=== PATIENT | male | born 1950 | race Caucasian/White ===

== ENCOUNTER → 2019-07-22 | Outpatient (CLI) | payer SELFPAY | PROVIDERS: Family Provider Nurse Practitioner; Visit Provider Nurse Practitioner | DX: N40.0 Benign prostatic hyperplasia without lower urinary tract symptoms (principal); K44.9 Diaphragmatic hernia without obstruction or gangrene; I70.0 Atherosclerosis of aorta | CPT/HCPCS: 74178; 82565; 84520; Q9967 ×2 ==

== ENCOUNTER 2019-07-25 08:00 | Outpatient (CLI) | payer MEDICARE, BC, SELFPAY | END 2019-07-25 09:00 | disposition home or self-care (01) | LOC: RAD 03-09 11:52 | PROVIDERS: PCP Nurse Practitioner; Referring Provider Nurse Practitioner; Visit Provider Urology | DX: Z87.442 Personal history of urinary calculi (principal) | CPT/HCPCS: 36415; 81001 ==

== ENCOUNTER 2019-09-16 14:51 | Outpatient (CLI) | payer MEDICARE, BC, SELFPAY ==
--- NOTE | 2019-09-16 15:00 | US_ITS ---
WS: [id number] SCROTAL ULTRASOUND EXAMINATION CLINICAL INFORMATION: mass COMPARISON: None. FINDINGS: TESTES Normal in size and echotexture, without focal lesion. Color Doppler: Normal color Doppler flow pattern. Right testes size: 4.3 cm x 3.5 cm x 2.7 cm. Left testes size: 4.3 cm x 3.2 cm x 1.5 cm. EPIDIDYMIDES Lobulated large epididymal cyst or spermatocele measuring 4.1 x 2.1 x 1.8 cm. No internal vascularity . Color Doppler: Normal color Doppler flow pattern. Right epididymis size: 1.0 cm Left epididymitis size: 1.3 cm HYDROCELE None. VARICOCELE None. OTHER FINDINGS None. US/US scrotum [id number] IMPRESSION: 1. Both testicles are normal in size and echotexture. Normal vascularity. 2. Large lobulated epididymal cystic lesion measuring 4.1 x 2.1 x 1.8 cm most consistent with epididymal cyst or spermatocele. Recommend Urology consultation .
== END 2019-09-16 14:52 | disposition home or self-care (01) ==
LOC: US 14:55
PROVIDERS: Family Provider Nurse Practitioner; PCP Nurse Practitioner; Visit Provider Nurse Practitioner
DX: N50.3 Cyst of epididymis (principal); N50.9 Disorder of male genital organs, unspecified
CPT/HCPCS: 76870

== ENCOUNTER → 2019-10-21 13:57 | Outpatient (BNVA) | payer MEDICARE, BC, SELFPAY | PROVIDERS: Family Provider Nurse Practitioner; PCP Nurse Practitioner; Visit Provider Urology | DX: R31.0 Gross hematuria (principal); N43.42 Spermatocele of epididymis, multiple | CPT/HCPCS: 81001 ==

== ENCOUNTER 2020-01-26 18:22 | Emergency (ER) | payer MEDICARE, BC, SELFPAY ==
[2020-01-26 18:25] VITALS: BP 150/96; PULSE 76; RESP 18; TEMP 36.7; O2SAT 93; BMI 26.4
--- NOTE | 2020-01-26 18:25 | ECG_ITS ---
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 Measurements Intervals [place] Rate: 70 P: 60 PA: 160 QRS: -3 QRSD: 108 T: 42 QT: 379 QTc: 409 Interpretive Statements SINUS RHYTHM INCOMPLETE RIGHT BUNDLE BRANCH BLOCK [90+ ms QRS DURATION, TERMINAL R IN V1/V2, 40+ ms S IN I/aVL/V4/V5/V6] No previous ECG available for comparison Electronically Signed On 01-26-2020 21:44:09 CDT by Iqra Baker M.D. [email or web address].[facility].[employer]/store/NU/[id number] f
--- NOTE | 2020-01-26 18:25 | XRR_ITS ---
PROCEDURE INFORMATION: Exam: XR Chest, 1 View Exam date and time: 01/26/2020 6:46 PM Age: 69 years old Clinical indication: Right-sided chest pain; Patient HX: C/O R sided cp worsened w inspiration TECHNIQUE: Imaging protocol: XR of the chest Views: 1 view. COMPARISON: No relevant prior studies available. FINDINGS: Lungs: Emphysema. Mild atelectasis in the left base. The right lung is clear. Pleural space: Unremarkable. No pleural effusion. No pneumothorax. Heart/Mediastinum: Unremarkable. No cardiomegaly. Bones/joints: Unremarkable. XR/XR chest 1V portable [id number] IMPRESSION: No acute findings. With
[2020-01-26 18:47] LABS: Basophils # 0.1 10^3/uL (0.0-0.1); Basophils % 0.9 %; Eosinophils # 0.2 10^3/uL (0.0-0.8); Eosinophils % 2.8 %; Hematocrit 44.9 % (42.0-52.0); Hemoglobin 14.6 g/dL (11.7-16.6); Lymphocytes % 17.7 %; Mean Corpuscular HGB Conc 32.5 g/dL (30.0-36.0); Mean Corpuscular Hemoglobin 29.9 pg (28.0-34.0); Mean Platelet Volume 10.3 fL (7.4-10.4); Monocytes # 0.5 10^3/uL (0.2-0.9); Monocytes % 8.7 %; Neutrophils % 69.7 %; Nucleated Red Blood Cells % 0 %; Platelet Count 242 10^3/cmm (130-400); Red Blood Count 4.88 10^6/uL (4.1-5.3); Red Cell Distribution Width 12.5 % (12.1-15.1); White Blood Count 5.8 10^3/uL (4.0-10.0)
--- NOTE | 2020-01-26 18:54 | ED_ITS ---
HPI - Chest Pain General: Chief Complaint: Chest Pain Stated Complaint: cp Time Seen by Provider: 01/26/20 18:35 Source: patient Mode of arrival: ambulatory Limitations: no limitations History of Present Illness: HPI narrative: 69-year-old female who states he was doing a step class just prior to arrival. He states that while he was doing a step class he started having chest pain is a pressure type pain along with nausea. He states that his pain is a pressure pain and at its worst is an 8 out of 10. He states he came straight here and his pain is improved and is now 1 ou t of 10. He has no history of heart disease. He was a former smoker. MD complaint: chest pain Onset (ago): hour(s) Onset: during exertion Pain location: substernal Pain radiation: none Severity: mild Quality: tightness Relieving factors: nothing and rest Exacerbating factors: nothing and exertion Associated symptoms: Deny abdominal pain, dyspnea, fever(s), nausea or vomiting Review of Systems Const: Denies: fever(s), chills, body aches or change in appetite Eyes: Denies: blurry vision or eye discomfort ENMT: Denies: throat pain or dental pain Card: Reports: chest pain Resp: Denies: dyspnea GI: Denies: abdominal pain, nausea, vomiting or diarrhea : Denies: dysuria Musc: Denies: neck pain or back pain Skin/Breast: Denies: rash Neuro: Denies: headache(s) Psych: Denies: depression Aston/Lymph: Denies: easy bruising All/Imm: Denies: urticaria PFSH ED PFSH: Medical History Gross hematuria with kidney stone passage H/O renal calculi Spermatocele of epididymis, multiple Surgical History S/P appendectomy S/P hernia repair S/P orchiopexy Family History Mother , 84 Cancer Father , at age 85 Pneumonia Social History Smoking and tobacco status: never smoked Alcohol intake: never Marital status: Single Current occupational status: retired History of recent travel: No Physical Exam Const: COMMON NORMALS: no acute distress, patient oriented x3 and healthy appearing HENMT: COMMON NORMALS: normocephalic and atraumatic HEAD & SCALP: normocephalic and atraumatic Eye: COMMON NORMALS: Equal, round and reactive pupils present and EOMs intact bilaterally PUPIL: Yes Equal, round and reactive pupils present Neck/C-Spine: COMMON NORMALS: full ROM and supple Chest: COMMONS NORMALS: normal inspection of the chest and normal palpation of entire chest wall Resp: COMMON NORMALS: normal respiratory effort, No retractions, No use of accessory muscles and clear to auscultation bilaterally AUSCULTATION: clear to auscultation bilaterally Cardio: COMMON NORMALS: regular rate, regular rhythm and No murmurs present (Cardio) RATE: regular rate RHYTHM: regular rhythm GI: COMMON NORMALS: Normal to inspection, nondistended, normoactive bowel sounds present, Soft to palpation, non-tender and no masses PALPATION: Yes Soft to palpation Extremity: COMMON NORMALS: normal to inspection and full ROM Neuro: COMMON NORMALS: patient oriented x3, moves all extremities and no focal motor deficits Psych: COMMON NORMALS: mental status grossly normal, Normal thought process present and cooperative THOUGHT PROCESS: Normal thought process present Skin: COMMON NORMALS: no rashes or lesions noted and no wounds GENERAL SKIN EXAM: no rashes or lesions noted Course Vital Signs: Vital signs: Vital Signs Temperature 98.1 F 01/26/20 18:25 Pulse Rate 71 01/26/20 19:30 Respiratory Rate 20 H 01/26/20 19:30 Blood Pressure 151/108 01/26/20 19:30 Pulse Oximetry 96 01/26/20 19:30 MDM - Chest Pain MDM Narrative: Medical decision making narrative: Patient presents with chest pain this since resolved. Patient's initial and repeat troponins are normal. Patient's EKGs are normal as well. I did offer patient admission as his pain was exertional. He states he feels that he does not need to be admitted at this time. He states he will follow-up with his PCP and I will get him follow-up with a school health assistant as well. I informed if he has any more pain he is to return immediately. Patient understands and agrees to plan. Lab Data: Labs: Lab Results 01/26/20 01/26/20 01/26/20 Range/Units 18:43 18:43 18:43 WBC 5.8 (4.0-10.0) 10^3/ uL RBC 4.88 (4.1-5.3) 10^6/u L Hgb 14.6 (11.7-16.6) g/dL Hct 44.9 (42.0-52.0) % MCV 92.0 (80-94) fL MCH 29.9 (28.0-34.0) pg MCHC 32.5 (30.0-36.0) g/dL RDW 12.5 (12.1-15.1) % Plt Count 242 (130-400) 10^3/c mm MPV 10.3 (7.4-10.4) fL Neut % (Auto) 69.7 % Lymph % (Auto) 17.7 % [place] % (Auto) 8.7 % Eos % (Auto) 2.8 % Baso % (Auto) 0.9 % Neut # (Auto) 4.0 (1.8-7.7) 10^3/u L Lymph # (Auto) 1.0 (0.8-4.8) 10^3/u L [place] # (Auto) 0.5 (0.2-0.9) 10^3/u L Eos # (Auto) 0.2 (0.0-0.8) 10^3/u L Baso # (Auto) 0.1 (0.0-0.1) 10^3/u L Nucleated RBC % (a uto) 0 % Nucleated RBCs # 0.0 /100WBC Sodium 140 (136-145) mmol/L Potassium 4.3 (3.5-5.1) mmol/L Chloride 104 (98-107) mmol/L Carbon Dioxide 26 (22-29) mmol/L Anion Gap 14.3 (5-19) BUN 16 (8-23) mg/dL Creatinine 0.9 (0.7-1.2) mg/dL Glucose 104 (65-115) mg/dL Calculated Osmolal ity 287 (285-295) mOsm/k g Calcium 9.5 (8.5-10.5) mg/dL Total Bilirubin 0.3 (0.15-1.2) mg/dL AST 25 (0-40) U/L ALT 17 (0-41) U/L Alkaline Phosphata se 70 (40-130) IU/L Troponin T Baselin e 15 (0-15) ng/L Troponin T 120 Min deering (0-15) ng/L Total Protein 6.7 (6.6-8.7) g/dL Albumin 4.6 (3.5-5.2) g/dL Globulin 2.1 (1.3-4.6) g/dL 01/26/20 Range/Units 20:10 WBC (4.0-10.0) 10^3/ uL RBC (4.1-5.3) 10^6/u L Hgb (11.7-16.6) g/dL Hct (42.0-52.0) % MCV (80-94) fL MCH (28.0-34.0) pg MCHC (30.0-36.0) g/dL RDW (12.1-15.1) % Plt Count (130-400) 10^3/c mm MPV (7.4-10.4) fL Neut % (Auto) % Lymph % (Auto) % [place] % (Auto) % Eos % (Auto) % Baso % (Auto) % Neut # (Auto) (1.8-7.7) 10^3/u L Lymph # (Auto) (0.8-4.8) 10^3/u L [place] # (Auto) (0.2-0.9) 10^3/u L Eos # (Auto) (0.0-0.8) 10^3/u L Baso # (Auto) (0.0-0.1) 10^3/u L Nucleated RBC % (a uto) % Nucleated RBCs # /100WBC Sodium (136-145) mmol/L Potassium (3.5-5.1) mmol/L Chloride (98-107) mmol/L Carbon Dioxide (22-29) mmol/L Anion Gap (5-19) BUN (8-23) mg/dL Creatinine (0.7-1.2) mg/dL Glucose (65-115) mg/dL Calculated Osmolal ity (285-295) mOsm/k g Calcium (8.5-10.5) mg/dL Total Bilirubin (0.15-1.2) mg/dL AST (0-40) U/L ALT (0-41) U/L Alkaline Phosphata se (40-130) IU/L Troponin T Baselin e (0-15) ng/L Troponin T 120 Min deering 15.92 H (0-15) ng/L Total Protein (6.6-8.7) g/dL Albumin (3.5-5.2) g/dL Globulin (1.3-4.6) g/dL Imaging Data^: CXR: Attestation: I personally reviewed and interpreted this imaging study as fo llows: My impression: no acute abnormality EKG Data^: EKG 1: Attestation: I personally reviewed and interpreted this EKG as follows: EKG interpretation date: 01/26/20 EKG interpretation time: 18:46 Interpretation: nsr hr [address] or t wave abnormalities qrs 108 qtc 399 EKG 2: Attestation: I personally reviewed and interpreted this EKG as follows: EKG interpretation date: 01/26/20 EKG interpretation time: 20:42 Interpretation: nsr hr [address] or t wave abnormalities qrs 109 qtc 410 Discharge Plan Discharge Patient Disposition: Home, Self-Care Clinical Impression: Chest pain Qualifiers: Chest pain type: other chest pain Qualified Code(s): R07.89 - Other chest pain Condition: Stable Prescriptions: No Action maitake liquid See Rx Instructions .ROUTE .COMPLEX RF: 0 chaga mushroom tablet 1 tab PO DAILY RF: 0 echinacea 1 tab PO DAILY RF: 0 c60 See Rx Instructions .ROUTE .COMPLEX RF: 0 oleuropsin See Rx Instructions .ROUTE .COMPLEX RF: 0 olive leaf extract See Rx Instructions .ROUTE .COMPLEX RF: 0 resveratrol-quercetin 100-100 mg tablet 1 tab PO DAILY RF: 0 ascorbate calcium (vitamin C) 500 mg tablet 500 mg PO DAILY RF: 0 liposamal 1 tab PO DAILY RF: 0 turmeric root extract 500 mg capsule 500 mg PO DAILY RF: 0 oregano oil 1,500 mg capsule 1,500 mg PO DAILY RF: 0 zinc 50 mg tablet 50 mg PO DAILY RF: 0 l-carnosine 500 mg PO DAILY RF: 0 nac 1,200 mg 1,200 mg PO DAILY RF: 0 vitamin B complex Capsule 1 cap PO DAILY RF: 0 vitamin k 2 1 tab PO DAILY RF: 0 nattokinase See Rx Instructions .ROUTE .COMPLEX RF: 0 boron 3 mg 3 mg PO DAILY RF: 0 lysine 1,000 mg tablet 1,000 mg PO DAILY RF: 0 taurine 1,000 mg capsule 1,000 mg PO DAILY RF: 0 pterostilbene 50 mg 50 mg PO DAILY RF: 0 calcium cit mal-vit D2-mag ox 200-200-25 mg-unit-mg tablet 1 tab PO DAILY RF: 0 Pure L-Citrulline 600 mg capsule See Rx Instructions PO DAILY RF: 0 Pankimmie, Moldovan rgxkb-D38-psav 150 mg-25 mg- 25 mg-15 mcg capsule 1 cap PO DAILY RF: 0 apple cider vinegar 600 mg capsule 600 mg PO DAILY RF: 0 green tea leaf extract Capsule 1 cap PO DAILY RF: 0 elderberry fruit-honey 0.7-3 gram/7.5 mL liquid 0.7 - 3 ml PO DAILY RF: 0 mecobalamin (vitamin B12) 5,000 mcg tablet,disintegrating 5,000 mcg PO DAILY RF: 0 potassium iodide 325 mg/5 mL solution 325 mg PO DAILY RF: 0 milk thistle 150 mg capsule See Rx Instructions PO DAILY RF: 0 mullein See Rx Instructions .ROUTE .COMPLEX RF: 0 comfrey 1 tab PO DAILY RF: 0 rock root xt-fennel sd xt 5-4 mg/5 mL liquid 5 ml PO DAILY RF: 0 Ca vedf-S7-iea-horset-lactobac 141 mg calcium- 5 mcg-60 mg tablet 1 tab PO DAILY RF: 0 gotu lucian (Centella asiatica) 441 mg capsule See Rx Instructions PO DAILY RF: 0 Tart Day 45-446-30-75-20 mg capsule 1 cap PO DAILY RF: 0 cod liver oil Oil 5 ml PO DAILY RF: 0 vital rakesh 1 tab PO DAILY RF: 0 fulvic and humic acid complex 1 tab PO DAILY RF: 0 Discharge Orders: Discharge Order (Routine); Ordered 01/26/20 Ordered By: Fuad Dunn Referrals: Greta Samayoa FNP [Primary Care Provider] - 1-3 days Nora Prado MD [Physician] - 1-3 days Discharge Diet: Advance as tolerated Discharge Activity: Resume usual activity Patient Instructions: Chest Pain (ED) Coding Level of Care Code ED Telesales Supervisor for Chg Fwd Exam Comprehensive
[2020-01-26 19:06] LABS: Alanine Aminotransferase 17 U/L (0-41); Albumin Level 4.6 g/dL (3.5-5.2); Alkaline Phosphatase 70 IU/L (40-130); Anion Gap 14.3 (5-19); Blood Urea Nitrogen 16 mg/dL (8-23); Calcium 9.5 mg/dL (8.5-10.5); Carbon Dioxide 26 mmol/L (22-29); Chloride 104 mmol/L (98-107); Creatinine Clr Calc Pharmacy 84.8159; Globulin 2.1 g/dL (1.3-4.6); Glucose 104 mg/dL (65-115); Osmolality Calculated 287 mOsm/kg (285-295); Potassium 4.3 mmol/L (3.5-5.1); Sodium 140 mmol/L (136-145); Total Bilirubin 0.3 mg/dL (0.15-1.2); Total Protein 6.7 g/dL (6.6-8.7)
[2020-01-26 19:08] LABS: Troponin(5th) Baseline 15 ng/L (0-15)
[2020-01-26 19:30] VITALS: BP 151/108; PULSE 71; RESP 20; O2SAT 96
[2020-01-26] MEDS: aspirin 81 mg Chew Tablet 324 MG PO (19:35)
[2020-01-26 20:19] LABS: Aspartate Amino Transferase 25 U/L (0-40)
--- NOTE | 2020-01-26 20:25 | ECG_ITS ---
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 Measurements Intervals [place] Rate: 68 P: 66 [place]: 168 QRS: 0 QRSD: 109 T: 40 QT: 392 QTc: 420 Interpretive Statements SINUS RHYTHM INCOMPLETE RIGHT BUNDLE BRANCH BLOCK [90+ ms QRS DURATION, TERMINAL R IN V1/V2, 40+ ms S IN I/aVL/V4/V5/V6] No previous ECG available for comparison Electronically Signed On 01-26-2020 21:47:28 CDT by Iqra Baker M.D. [email or web address] of mississippi medical centerMillennium Pharmacy Systemschildren[facility].[employer]/store/NU/[id number] f
[2020-01-26 20:40] LABS: Troponin 5 2HR 15.92 ng/L (0-15); Troponin 5 2HR Delta 0.92 ABS# (0-10)
[2020-01-26 21:34] VITALS: BP 130/89; PULSE 66; RESP 16; O2SAT 94
--- NOTE | 2020-01-27 13:56 | DCPLANNER ---
emergency preparedness manager had message to schedule a follow up appointment for patient with [facility]. emergency preparedness manager called [facility], spoke with Carla, gave clinic patients information. emergency preparedness manager was told that patients information would be printed and reviewed. Clinic will call patient with appointment information.
--- NOTE | 2020-01-29 08:42 | DCPLANNER ---
Patient has a follow up appointment scheduled for , January 29, 2020 at 2:[address] Prado. Clinic will call patient with appointment information.
--- NOTE | 2020-02-03 11:31 | DCPLANNER ---
Patient did not attend follow up appointment scheduled for 01.29.20 with [facility].
== END 2020-01-26 21:36 | disposition home or self-care (01) ==
PROVIDERS: Emergency Provider Emergency Medicine; PCP Nurse Practitioner
DX: R07.89 Other chest pain (principal)
CPT/HCPCS: 12345; 36415; 71045; 80053; 84484; 85025; 93005; 99282; 99284

== ENCOUNTER 2020-02-19 11:10 | Outpatient (CLI) | payer MEDICARE, BC, SELFPAY ==
[2020-02-19 11:14] VITALS: BMI 27.2
--- NOTE | 2020-02-19 11:16 | ECG_ITS ---
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 Interpretive Statements NAME OF STUDY: TREADMILL STRESS TEST INDICATION: Chest Pain Baseline blood pressure of 124/89 mm Hg, heart rate 56 beats per minute and oxygen saturation of 93%. EKG showed normal sinus rhythm, normal axis with incomplete right bundle branch block. The patient exercised for 6 minutes 11 seconds on a standard Yuriy protocol. Patient attained a maximum heart rate of 128 beats per minute(85 % of the maximum predicted heart rate) with a blood pressure at the peak exercise of 168/94 mm Hg increases early in recovery to 199/105 mmHg, heart rate of 127 bpm and oxygen saturation 93%. The EKG at the peak exercise revealed sinus tachycardia with half a millimeter upsloping ST depression in inferior leads and V5 and V6 not meeting diagnostic criteria for ischemia. Patient did not have any chest pain or any significant arrhythmis with the exercise. During the recovery phase, there were no new changes. Blood pressure at the end of the recovery phase was 157/94 mm Hg with a heart rate of 73 beats per minute oxygen saturation 98%. CONCLUSION: 1. Normal EKG response to treadmill exercise. 2. No exercise-induced chest pain or cardiac arrhythmia. 3. Good exercise tolerance, attained a maximum of 10.2 METs. 4. Baseline normal blood pressure with normal response to exercise. Electronically Signed On 02-20-2020 11:42:55 CDT by Nora Prado M.D. [email or web address]/store/OM/[id number]
[2020-02-19 11:59] VITALS: BP 175/97; PULSE 90
--- NOTE | 2020-02-19 14:15 | USCV_ITS ---
Fernandochapis Pastor Age: 69 Gender: M : 1950 Exam Date: 02/19/2020 11:31 Ordering Phys: Matthieu Bolaños MD Technologist: Jie Reese Exam Location: [facility] [place] Indication: CHEST PAIN BP: 151 / 88 HR: 61 Rhythm: Sinus Technical Quality: Good MEASUREMENTS (Male / Female) Normal Values 2D ECHO LV Diastolic Diameter PLAX 4.4 cm 4.2 - 5.9 / 3.9 - 5.3 cm LV Systolic Diameter PLAX 2.7 cm LV Chamber Size 5.2 cm IVS Diastolic Thickness 1.0 cm 0.6 - 1.0 / 0.6 - 0.9 cm IVS Systolic Thickness 1.6 cm LVPW Diastolic Thickness 0.8 cm 0.6 - 1.0 / 0.6 - 0.9 cm LVPW Systolic Thickness 2.0 cm RV Chamber Size 3.0 cm LVOT Diameter 2.0 cm LV Ejection Fraction 2D Teich 69.7 % LV Ejection Fraction MOD 2C 56.5 % LV Ejection Fraction 2C AL 57.9 % LA Diameter 4.3 cm LA Width 3.6 cm LA Height 6.2 cm RA Width 3.2 cm RA Height 6.1 cm Aorta at Sinotubular Diameter 3.6 cm M-MODE LV Diastolic Diameter MM 6.2 cm 4.2 - 5.9 / 3.9 - 5.3 cm LV Systolic Diameter MM 3.9 cm LV Ejection Fraction MM Teich 65.4 % IVS Diastolic Thickness MM 0.9 cm 0.6 - 1.0 / 0.6 - 0.9 cm IVS Systolic Thickness MM 1.5 cm LVPW Diastolic Thickness MM 1.3 cm 0.6 - 1.0 / 0.6 - 0.9 cm LVPW Systolic Thickness MM 1.6 cm RV Diastolic Diameter MM 1.7 cm Aortic Annulus Diameter 3.8 cm LA Ao Ratio MM 1.1 MV E Point Septal Separation 0.1 cm DOPPLER AV Peak Velocity 127.0 cm/s LVOT Peak Velocity 109.0 cm/s AV Area Cont Eq vti 2.8 cm squared AV Area Cont Eq pk 2.7 cm squared MV Area PHT 3.6 cm squared Mitral E to A Ratio 1.5 MV E' Velocity 14.0 cm/s Mitral E to MV E' Ratio 6.9 Mitral E to LV E' Lateral Ratio 5.4 Mitral E to LV E' Septal Ratio 9.6 TR Peak Velocity 232.7 cm/s TR Peak Gradient 21.7 mmHg TR Mean Velocity 184.3 cm/s TR Mean Gradient 14.4 mmHg TR Velocity Time Integral 62.2 cm TV Peak E Velocity 77.0 cm/s Right Atrial Pressure 3.0 mmHg Pulmonary Artery Systolic Pressu 24.7 mmHg PV Peak Velocity 59.0 cm/s FINDINGS Left Ventricle Normal left ventricular size, systolic function and wall thickness, with no regional wall motion abnormalities. Left ventricular ejection fraction is estimated at 74 %. Normal diastolic function. Right Ventricle Normal right ventricular size and systolic function. Right ventricular systolic pressure 24.7 mmHg. Right Atrium Mildly increased right atrial size. Right atrial pressure estimated at 3 mm Hg. Left Atrium Mildly increased left atrial size. Mitral Valve Structurally normal mitral valve. No mitral valve stenosis. Trace mitral valve regurgitation. Aortic Valve Structurally normal trileaflet aortic valve. No aortic valve stenosis. Mild aortic valve regurgitation. Tricuspid Valve Structurally normal tricuspid valve. No tricuspid valve stenosis. Trace to mild tricuspid valve regurgitation. Pulmonic Valve Structurally normal pulmonic valve. No pulmonary valve stenosis. Trace pulmonary valve regurgitation. Pericardium No pericardial effusion. Aorta Normal size aortic root and proximal ascending aorta. CONCLUSIONS 1. Normal left ventricular size, systolic function and wall thickness, with no regional wall motion abnormalities. Left ventricular ejection fraction is estimated at 74 %. Normal diastolic function. 2. Pulmonary artery pressure estimated at 25 mm Hg. 3. Mild biatrial enlargement. 4. Mild aortic valve regurgitation. 5. No prior similar studies to compare. Nora Prado MD (Electronically Signed) Final Date: 22 February 2020 22:50 S
== END 2020-02-19 11:11 | disposition home or self-care (01) ==
LOC: CDL 11:11
PROVIDERS: PCP Nurse Practitioner; Visit Provider Family Medicine
DX: R07.9 Chest pain, unspecified (principal); I35.1 Nonrheumatic aortic (valve) insufficiency
CPT/HCPCS: 93017; 93306